=== PATIENT | male | born 1975 | race African-American/Black ===

== ENCOUNTER 2021-10-02 10:57 | Inpatient (IN) | payer OTHER ==
[2021-10-02 12:10] VITALS: BMI 22.4
[2021-10-02] MEDS ORDERED: cloNIDine HCL 0.1 MG TABLET PO ONE (14:21)
[2021-10-02] MEDS ORDERED: IBUPROFEN 400 MG TABLET (FP) PO PRN (14:21)
[2021-10-02] MEDS ORDERED: BUPRENORPHINE HCL 150 MCG, BUPRENORPHINE HCL 75 MCG BC ONE (14:21)
[2021-10-02] MEDS ORDERED: ACETAMINOPHEN 325 MG TABLET (FP) PO PRN (14:21)
[2021-10-02] MEDS ORDERED: BISMUTH SUBSALICYLATE 262 MG/15 ML BTL PO PRN (14:21)
[2021-10-02] MEDS ORDERED: ONDANSETRON *ODT* 4 MG TABLET SL PRN (14:21)
[2021-10-02] MEDS ORDERED: MAGNESIUM CITRATE 300 ML BOTTLE PO PRN (14:21)
[2021-10-02] MEDS ORDERED: LOPERAMIDE HCL 2 MG CAPSULE PO PRN (14:21)
[2021-10-02] MEDS ORDERED: MAGNESIUM HYDROX 2400MG/30ML ORAL SUSPENSION 30 ML CUP PO PRN (14:21)
[2021-10-02] MEDS ORDERED: MAG HYDROX/AL HYDROX/SIMETH 30 ML UNIT-DOSE CUP PO PRN (14:21)
[2021-10-02] MEDS ORDERED: BENZOCAINE/MENTHOL (CHLORASEPTIC ) LOZENGE MM PRN (14:21)
[2021-10-02] MEDS ORDERED: IBUPROFEN 600 MG TABLET (FP) PO PRN (14:21)
[2021-10-02] MEDS ORDERED: DICYCLOMINE HCL 10 MG CAPSULE PO PRN (14:21)
[2021-10-02] MEDS ORDERED: BUPRENORPHINE HCL 150 MCG, BUPRENORPHINE HCL 75 MCG BC PRN (14:21)
[2021-10-02] MEDS ORDERED: ALBUTEROL SO4 HFA INHALER IH PRN (15:21)
[2021-10-02] MEDS ORDERED: BUPRENORPHINE HCL 150 MCG FILM BC ONE ×2 (15:22→18:40)
[2021-10-02] MEDS ORDERED: cloNIDine HCL 0.1 MG TABLET ONE (15:23)
[2021-10-02] MEDS ORDERED: BUPRENORPHINE HCL 75 MCG FILM BC ONE ×2 (15:23→18:41)
[2021-10-02] MEDS: METHOCARBAMOL 500 MG TABLET PO PRN (18:55)
[2021-10-02] MEDS: ACETAMINOPHEN 325 MG TABLET (FP) PO PRN (18:56)
[2021-10-02] MEDS: hydrOXYzine PAMOATE 25 MG CAPSULE (FP) PO SCH ×2 (18:57→23:32)
[2021-10-02] MEDS: diazePAM 5 MG TABLET PO PRN (19:02)
[2021-10-02] MEDS ORDERED: MELATONIN 5 MG TABLETS PO SCH (22:00)
[2021-10-02] MEDS ORDERED: THIAMINE HCL 100 MG TABLET (FP) PO SCH (22:00)
[2021-10-03] MEDS ORDERED: BUPRENORPHINE HCL 150 MCG, BUPRENORPHINE HCL 75 MCG BC PRN
[2021-10-03] MEDS: cloNIDine HCL 0.1 MG TABLET PO PRN ×2 (02:35→07:54)
[2021-10-03] MEDS: METHOCARBAMOL 500 MG TABLET PO PRN ×2 (02:35→11:09)
[2021-10-03] MEDS: ACETAMINOPHEN 325 MG TABLET (FP) PO PRN (02:37)
[2021-10-03] MEDS ORDERED: BUPRENORPHINE HCL 150 MCG FILM BC ONE (04:58)
[2021-10-03] MEDS ORDERED: BUPRENORPHINE HCL 75 MCG FILM BC ONE (04:59)
[2021-10-03] MEDS ORDERED: BUPRENORPHINE HCL 150 MCG, BUPRENORPHINE HCL 75 MCG BC SCH (06:00)
[2021-10-03] MEDS: hydrOXYzine PAMOATE 25 MG CAPSULE (FP) PO SCH ×2 (06:16→11:09)
[2021-10-03] MEDS: diazePAM 5 MG TABLET PO PRN (08:00)
[2021-10-03] MEDS ORDERED: NICOTINE 21 MG/24 HOURS TOPICAL PATCH TD SCH (10:00)
[2021-10-03] MEDS ORDERED: PRENATAL VITAMINS W/ FOLIC ACID TABLET (FP) PO SCH (10:00)
[2021-10-03 12:25] LABS: HEMATOCRIT 44.5 % (35.4-49); HEMOGLOBIN 14.9 GM/dL (11.7-16.9); MCH 29.1 pg (25.7-33.7); MCHC 33.4 g/dl (32.0-35.9); MEAN CELL VOLUME 87.2 fl (80-96); MEAN PLT VOLUME 8.4 fl (7.5-11.1); PLATELET COUNT 309 10^3/uL (134-434); RDW 14.3 % (11.9-15.9); WHITE BLOOD COUNT 5.4 K/mm3 (4.0-10.0)
[2021-10-03 12:41] LABS: ALBUMIN 3.4 g/dl (3.4-5.0); BLOOD UREA NITROGEN 10.3 mg/dL (7-18); CALCIUM 9.1 mg/dL (8.5-10.1)
[2021-10-03 12:45] LABS: CREATININE 0.7 mg/dL (0.55-1.3)
[2021-10-03 12:46] LABS: BILIRUBIN,TOTAL 0.6 mg/dL (0.2-1); TOT PROT 8.2 g/dl (6.4-8.2)
[2021-10-03 13:11] VITALS: BP 145/56; PULSE 60; RESP 18; TEMP 97.7
[2021-10-03] MEDS ORDERED: SUVOREXANT 10 MG TABLET PO PRN (22:00)
[2021-10-03] MEDS ORDERED: QUEtiapine FUMARATE 100 MG TABLET (FP) PO SCH (22:00)
[2021-10-04] MEDS ORDERED: BUPRENORPHINE HCL 450 MCG FILM BC SCH (06:00)
[2021-10-05] MEDS ORDERED: BUPRENORPHINE/NALOXONE 4 MG/1 MG FILM PACKET SL SCH (06:00)
[2021-10-06] MEDS ORDERED: BUPRENORPHINE/NALOXONE 8 MG/2 MG FILM PACKET SL ONE (06:00)
== END 2021-10-03 12:55 | disposition left against medical advice (07) | DRG 770 ==
LOC: YASAS 10:57 → Y6N 14:53
PROVIDERS: ADMIT Allergy & Immunology; ATTEND Surgery
PROC: HZ2ZZZZ Detoxification Services for Substance Abuse Treatment (ICD-10-PCS; principal; 2021-10-02)
DX: F11.23 Opioid dependence with withdrawal (principal); F14.20 Cocaine dependence, uncomplicated; F16.20 Hallucinogen dependence, uncomplicated; F12.20 Cannabis dependence, uncomplicated; F20.9 Schizophrenia, unspecified; F19.282 Other psychoactive substance dependence with psychoactive substance-induced sleep disorder; F19.24 Other psychoactive substance dependence with psychoactive substance-induced mood disorder; J45.909 Unspecified asthma, uncomplicated; Z88.8 Allergy status to other drugs, medicaments and biological substances; Z91.018 Allergy to other foods; Z56.0 Unemployment, unspecified; Z59.01 Sheltered homelessness
CPT/HCPCS: 36415; 80053; 85027; 86780; 87811; C9803-CS; J0735; U0003; U0005